=== PATIENT | female | born 1980 ===

== ENCOUNTER 2023-03-16 00:21 | Emergency (ER) | payer OTHER, SELFPAY ==
--- NOTE | 2023-03-16 00:34 | ED.NURSE ---
Patient left waiting room without being triaged. Patient declined to sign refusal form and walked out of the building with her per campus receptionist.
--- NOTE | 2023-03-16 01:48 | W.ED.CHARTNO ---
ED Chart Note Chart Note Details Date: 03/16/23 Details: Left without being seen by a provider
== END 2023-03-16 00:34 | disposition left against medical advice (07) ==
PROVIDERS: Emergency Provider Student in an Organized Health Care Education/Training Program
DX: Z53.29 Procedure and treatment not carried out because of patient's decision for other reasons (principal)